=== PATIENT | male | born 1960 | race Caucasian/White ===

== ENCOUNTER 2018-05-30 08:29 | Inpatient (IN) | payer OTHER ==
[~2018-05-30 08:29] MED LIST: ACETAMINOPHEN 500 MG TAB PO ONE; TRANEXAMIC ACID 1,000 MG in NS 100 ML IV ONE; ceFAZolin 2 GM/DEXTROSE 100 ML IV ONE
[2018-05-30] MEDS ORDERED: LIDOCAINE 1% 2 ML INJ ID PRN (08:41)
[2018-05-30] MEDS ORDERED: LR 1,000 ML IV ONE (08:41)
[2018-05-30] MEDS ORDERED: ACETAMINOPHEN 500 MG TAB ONE (08:45)
[2018-05-30] MEDS ORDERED: CEFAZOLIN 2 GM/DEXTROSE/100 ML BAG IV ONE (08:45)
[2018-05-30] MEDS ORDERED: BUPIVACAINE/EPI 0.5% 30 ML SDV ONE (09:12)
[2018-05-30] MEDS ORDERED: BACITRACIN 50,000 UNITS/10 ML SYR IRR ONE (09:13)
[2018-05-30] MEDS ORDERED: SURGIFLO MATRIX KIT WITH THROMBIN 8 ML TP ONE (09:13)
--- NOTE | 2018-05-30 09:22 | PDHPUP ---
History & Physical Update H&P update statement: This history and physical update is based on an assessment of the patient which was completed after admission or registration (within 24 hours), but prior to the surgery/procedure. H&P update: H&P reviewed & patient examined (yes), no change in patient's condition since H&P completed H&P changes: Laterality discussed with patient. Will perform L2/3, L3/4 XLIF only from the left side today.
[2018-05-30] MEDS ORDERED: MIDAZOLAM 2 MG/2 ML VIAL IVP ONE ×2 (09:32→09:41)
--- NOTE | 2018-05-30 09:32 | PDANEPAE ---
ANE History of Present Illness here for xlif ANE Past Medical History - Cardiovascular History Hx Hypertension: Yes Hx Arrhythmias: No Hx Chest Pain: No Hx Coronary Artery / Peripheral Vascular Disease: No Hx CHF / Valvular Disease: No Hx Palpitations: No - Pulmonary History Hx COPD: No Hx Asthma/Reactive Airway Disease: No Hx Recent Upper Respiratory Infection: No Hx Oxygen in Use at Home: No Hx Sleep Apnea: No Sleep Apnea Screening Result - Last Documented: Negative - Neurologic History Hx Cerebrovascular Accident: No Hx Seizures: No Hx Dementia: No - Endocrine History Hx Diabetes: No - Renal History Hx Renal Disorders: No - Liver History Hx Hepatic Disorders: No - Neurological & Psychiatric Hx Hx Neurological and Psychiatric Disorders: No - Cancer History Hx Cancer: No - Congenital Disorder History Hx Congenital Disorders: No - GI History Hx Gastrointestinal Disorders: No - Other Health History Other Health History: NEG - Chronic Pain History Chronic Pain: Yes (BACK PAIN CHRONIC , KNEE,HIP, NECK, HANDS) - Surgical History Prior Surgeries: KNEE SCOPE R X2. R SHOULDER SCOPE X2. L SHOULDER SCOPE. SPINAL SURGERY X3 LUMBAR. BUNIONECTOMY OJ. COLONOSCOPIES. TENNIS ELBOW ANE Review of Systems Review of systems is: negative Review of Systems: - Exercise capacity Exercise capacity: >=4 METS METS (RN): 4 METS ANE Patient History - Allergies Allergies/Adverse Reactions: No Known Allergies Allergy (Verified 05/30/18 09:22) - Home Medications Home medications: home medication list seen and reviewed Home Medications: Acetaminophen [Tylenol ES 500 mg (*)] 1,000 mg PO TID 05/24/18 [Last Taken 05/29 21:00] Atorvastatin Calcium [Lipitor 20 mg (*)] 20 mg PO DAILY 05/24/18 [Last Taken ] Gabapentin [Neurontin 300 MG (*)] 300 mg PO TID 05/24/18 [Last Taken 05/29/18] Herbals/Supplements -Info Only 1 each PO DAILY 05/24/18 [Last Taken Unknown] Lisinopril [Zestril 20 mg (*)] 20 mg PO DAILY 05/24/18 [Last Taken 05/29/18] amLODIPine BESYLATE [Norvasc 5 mg (*)] 5 mg PO DAILY 05/24/18 [Last Taken ] Multivitamins [Multivitamin (*)] 1 each PO DAILY 05/30/18 [Last Taken 05/23/18] Tadalafil [Cialis] 20 gm PO AD PRN 05/30/18 [Last Taken 05/27/18] - NPO status NPO Status: no food or drink >8 hours NPO Since - Liquids (Date): 05/23/18 NPO Since - Liquids (Time): 06:30 NPO Since - Solids (Date): 05/29/18 NPO Since - Solids (Time): 22:00 - Smoking Hx Smoking Status: Former smoker - Family Anes Hx Family Hx Anesthesia Complications: NEG ANE Labs/Vital Signs - Vital Signs Vital Signs: reviewed preoperatively; see RN documention for details Blood Pressure: 131/83 Heart Rate: 79 Respiratory Rate: 20 O2 Sat (%): 94 Height: 172.72 cm Weight: 92.986 kg ANE Physical Exam - Airway Neck exam: FROM Mallampati Score: Class 1 - Pulmonary Pulmonary: no respiratory distress - Cardiovascular Cardiovascular: regular rate and rhythym - ASA Status ASA Status: II ANE Anesthesia Plan Anesthesia Plan: general endotracheal anesthesia
[2018-05-30] MEDS ORDERED: fentaNYL 100 MCG/2 ML INJ ONE ×3 (09:45→12:43)
[2018-05-30] MEDS ORDERED: PROPOFOL/EMULSION 500 MG/50 ML BOTTLE IV ONE (09:47)
[2018-05-30] MEDS ORDERED: *INTRAOP 1000MG*TRANEX ACID/NS 100 ML IV ONE (10:00)
[2018-05-30] MEDS ORDERED: ALBUTEROL 3 ML DEYVIAL IH PRN (10:37)
[2018-05-30] MEDS ORDERED: ONDANSETRON 4 MG/2 ML VIAL IVP PRN ×2 (10:37→13:12)
[2018-05-30] MEDS ORDERED: NALOXONE HCL 0.4 MG/ML INJ IVP PRN (10:37)
[2018-05-30] MEDS ORDERED: DEXAMETHASONE 4 MG/ML VIAL IVP PRN (10:37)
[2018-05-30] MEDS ORDERED: LR 500 ML IV PRN (10:37)
[2018-05-30] MEDS ORDERED: PROPOFOL 200 MG/20 ML VIAL ONE (11:08)
[2018-05-30] MEDS: fentaNYL 100 MCG/2 ML INJ IVP PRN ×2 (12:38→12:59)
--- NOTE | 2018-05-30 12:41 | POSTOPPROG ---
Post Op Note Date of Operation: 05/30/18 Surgeon: Jonathon Cuevas Veterinary Dentist: zana narayan PA-C Anesthesiologist: dr. Davis Anesthesia: GET(General Endotracheal) Pre-op Diagnosis: lumbar spinal stenosis Post-op Diagnosis: same Indication: pain Procedure: XLIF L2/L3 and L3/L4 Inf/Abcess present in the surg proc area at time of surgery?: No EBL: 50-100
[2018-05-30] MEDS ORDERED: HYDROmorphONE/DILAUDID 1 MG/ML INJ ONE ×2 (12:51→15:20)
[2018-05-30] MEDS: HYDROmorphONE/DILAUDID 1 MG/ML INJ IVP PRN ×7 (12:53→23:29)
[2018-05-30] MEDS ORDERED: LACTULOSE 20 GM/30 ML UDCUP PO PRN (13:12)
[2018-05-30] MEDS ORDERED: HYDROmorphONE/DILAUDID 1 MG/ML INJ IVP PRN (13:12)
[2018-05-30] MEDS ORDERED: MAGNESIUM HYDROXIDE 30 ML UDCUP PO PRN (13:12)
[2018-05-30] MEDS ORDERED: ONDANSETRON DISINTEGRATING 4 MG TAB PO PRN (13:12)
[2018-05-30] MEDS ORDERED: POLYETHYLENE GLYCOL 3350 17 GM PKT PO PRN (13:12)
[2018-05-30] MEDS ORDERED: oxyCODONE IR 5 MG TAB PO PRN (13:12)
[2018-05-30] MEDS ORDERED: diphenhydrAMINE 25 MG CAP PO PRN (13:12)
[2018-05-30] MEDS ORDERED: BISACODYL 10 MG SUPP PR PRN (13:12)
[2018-05-30] MEDS ORDERED: oxyCODONE IR 5 MG TAB ONE ×2 (13:41→14:23)
[2018-05-30] MEDS: oxyCODONE IR 5 MG TAB PO PRN ×3 (14:24→21:17)
[2018-05-30] MEDS: ACETAMINOPHEN 500 MG TAB PO SCH ×2 (16:17→21:16)
--- NOTE | 2018-05-30 16:20 | SUROPNOTE ---
[facility] Operative Report - Surgery Date: 05/30/18 Pre-operative Diagnoses: Degenerative disc disease and spondylosis s/p L4-S1 fusion Sagittal plane imbalance Right leg radiculopathy Lumbar spinal stenosis Post-operative Diagnosis: Same Procedures: Left-sided L2/3, L3/4 Minimally invasive extreme lateral interbody fusion ( XLIF) Left L2/3, L3/4 Anterior column plate and screw fixation Structural use of allograft Use of intra-operative fluoroscopy Use of intra-operative neuromonitoring, including EMG, MEP and SSEP modalities Surgeon: Jonathon Cuevas MD Assist: Sharonda Willis PA-C Anesthesia: General endotracheal anesthesia Findings: As expected Estimated Blood Loss: 20mL Drains: None Specimens: None Complications: None Condition: Transferred to PACU in stable condition Implants: NuVasive XLIF Cage: L2/3 [id number], L3/4 [id number] Anterior Column Plate: Modulus incorporated plate x 2 Anterior Screws: 55mm x 2 Allograft: 9mL allograft used structurally in the disc space and interbody cage Indications: This patient was seen in my office and diagnosed with degenerative spinal stenosis and sagittal imbalance from a prior L4-S1 fusion. I have explained all options of treatment for the patient, and the patient has elected to proceed with operative management. I have explained all risks, benefits, and alternatives of the proposed procedure. The risks that we have discussed include , blindness, nerve damage, infection, dural tear, failure of surgery to alleviate pre-operative symptoms, nonunion, and possible need for further operation. I explained separately the risks of allograft, including infection and disease transfer. I specifically discussed the additional risks of XLIF, including but not limited to vascular damage, femoral nerve radiculopathy, or weakness. In addition to the aforementioned procedure, I discussed with the patient that other procedures may be indicated during the course of surgery that would be considered in the patients best interest. The patient expressed understanding of this and agreed to move forward with operative management. Based on the position of the great vessels, I had a discussion with the patient that we would take a left-sided approach. He understood that this may mean more left thigh pain and weakness. Pre-operative: The proposed incision sites were marked in the pre-operative holding area by me. The patient was then taken to the operating room in stable condition. Following smooth induction of general anesthesia, the patient was positioned in a lateral decubitus position on a flat OR table with all down surfaces well- padded. The patient was then prepped and draped in the usual sterile fashion. Pre-operative antibiotics were administered within one hour of the incision. A surgical timeout was performed, and all parties involved in the procedure were in agreement on the correct patient, location, and procedure to be performed. Level localization and spinal pause: After the table was broken to allow for appropriate access to the disk space, x- rays were taken to make sure that the operative disc space was properly marked out. Both the L2/3 and L3/4 disc spaces were adequately visualized. Once the disk space was marked out from a lateral approach, a local anesthetic with epinephrine was injected into the area and approximately a 5cm incision was then made over the side overlying the disk directly lateral to it. Subdermal fat was then explored and moved aside. The external and internal oblique muscles were then dissected bluntly using finger and Metzenbaum scissors. The retroperitoneal space was then entered using manual palpation. The transverse process and the disk space of the operative level was palpated. A wire was then placed into the operative disc space and confirmed on both AP and lateral radiographs. Serial dilators were then placed in position here to allow for an XLIF retractor. The XLIF retractor was then placed over the operative disk space. This was again confirmed by AP and lateral radiographs and then a nerve detection system was used to ensure that the lumbar plexus was not violated. Placement of XLIF interbody cage: The L3/4 space was addressed first. A posterior amilcar was then placed into the posterior third of the vertebral body and retracted forward or anteriorly. An ALL protector was then placed anteriorly over the front of the anterior vertebral bodies. The disk space was then incised and the annulus fibrosis was removed. Serial disk preparation tools including a Nelson curette, box cutters, # 5 Kerrison and pituitary rongeur was used to prep the disk space. This was also flushed several times to ensure that the disk space was empty of any remaining debris. At this time, a trial was then placed and the appropriately sized cage was selected. The cage was then packed with 5 mL of allograft bone and this was gently malleted in place and again confirmed by both AP and lateral radiographs. The rack production worker was then removed. Attention was then turned towards the plate placement. At this time, an anterior column plate was then placed laterally over the cage itself. Screw holes were then drilled into both the cephalad and caudal vertebrae levels. Appropriately-sized screws were then placed into both vertebrae with just enough purchase for a bicortical bite within the vertebral body. Again, radiographs confirmed both placement of the graft and the screws. The spondylolisthesis and pars insufficiency fractures were noted to be reduced. At this time, all monitoring was noted to be stable. Based on presurgical templating, a 12mm x 22mm x 15deg cage was placed, and an associated 55mm screw was used through the Modulus plate. The process was repeated at L2/3. The retractor was removed and replaced, and a 8mm x 22mm x 10deg cage was placed with a 55mm screw and Modulus plate were used. Closure of lateral incision: Attention was then turned towards closure. Several #1 Vicryl sutures were used to reapproximate the fascia overlying the oblique muscles. A 2-0 Monocryl sutures were then used to repair the subcutaneous tissues and a 4-0 Monocryl was used to repair the skin. Glue was then used over the top of this and this surgical site was then sealed completely. Neuromonitoring: SSEP, MEP, and EMG were used throughout the case from incision until the beginning of closure. There were no significant changes throughout the case, and SSEP signals were at their pre-surgical baseline levels before surgical closure was initiated. land surveyor assistant: A surgical scrub tech was used throughout the case, and deemed necessary for safe neural retraction, hemostasis, and suction. Recovery: The patient was extubated uneventfully in the operating room. The patient was taken to the recovery room in stable condition. Sequential compression devices for VTE prophylaxis were applied to the patients lower extremities, and were ordered to be used while the patient was non-ambulatory. Chemical VTE prophylaxis was considered to be contraindicated for this patient because of the risk of bleeding near the epidural space. Jonathon Cuevas MD
--- NOTE | 2018-05-30 16:32 | SOAPPROG ---
SOAP Progress Note Assessment/Plan: Pt seen and evaluated at bedside. No unusual complaints. Had pain before, now controlled on an oral regimen. Neuro intact, mild anterior thigh pain noted. A/P transfer to floor care PO pain Rx Will meet with patient tomorrow. If any issues or questions arise, please contact me (not call service) directly at [phone] [place] Objective: Vital Signs Temp Pulse Resp BP Pulse Ox 36.3 C 77 16 126/72 H 93 05/30/18 16:10 05/30/18 16:10 05/30/18 16:10 05/30/18 16:10 05/30/18 16:10 05/29/18 05/30/18 05/31/18 05:59 05:59 05:59 Intake Total 850 Output Total 20 Balance 830 ICD10 Worksheet Patient Problems: Problems Problem Status Onset Spinal stenosis Acute Spinal stenosis Acute - ICD10 Problem Qualifiers (1) Spinal stenosis (2) Spinal stenosis
[2018-05-30] MEDS: ceFAZolin 2 GM/DEXTROSE 100 ML IV SCH (18:38)
[2018-05-30] MEDS: SENNOSIDES/DOCUSATE SODIUM TAB PO SCH (21:17)
[2018-05-30] MEDS: FAMOTIDINE 20 MG TAB PO SCH (21:17)
[2018-05-31] MEDS: ceFAZolin 2 GM/DEXTROSE 100 ML IV SCH (02:03)
[2018-05-31] MEDS: oxyCODONE IR 5 MG TAB PO PRN ×6 (02:04→23:58)
[2018-05-31 05:34] LABS: PLATELET COUNT 308 10^3/uL (150-400)
[2018-05-31] MEDS: ACETAMINOPHEN 500 MG TAB PO SCH ×3 (05:57→21:47)
[2018-05-31] MEDS: SENNOSIDES/DOCUSATE SODIUM TAB PO SCH ×2 (08:12→21:46)
[2018-05-31] MEDS: FAMOTIDINE 20 MG TAB PO SCH ×2 (08:12→21:47)
[2018-05-31] MEDS: HYDROmorphONE/DILAUDID 1 MG/ML INJ IVP PRN ×2 (08:59→11:37)
[2018-05-31] MEDS ORDERED: ATORVASTATIN CALCIUM 20 MG TAB PO SCH (09:00)
[2018-05-31] MEDS ORDERED: amLODIPine BESYLATE 5 MG TAB PO SCH (09:00)
[2018-05-31] MEDS ORDERED: LISINOPRIL 20 MG TAB PO SCH (09:15)
[2018-05-31] MEDS: LISINOPRIL 20 MG TAB PO SCH (10:02)
[2018-05-31] MEDS: ATORVASTATIN CALCIUM 20 MG TAB PO SCH (10:02)
[2018-05-31] MEDS: amLODIPine BESYLATE 5 MG TAB PO SCH (10:03)
--- NOTE | 2018-05-31 10:51 | PDMN ---
Medical Necessity Medical necessity: [facility] IP only surgery; cpt 81536 Lumbar Fusion (L2/3, L3/4 XLIF)
--- NOTE | 2018-05-31 11:07 | ASMTCMCOM ---
CM Note CM Note Notes: Met with patient re: d/c planning and discussed case with primary RN. Patient is scheduled for anther surgery tomorrow. At this time, patient feels he will be okay discharging home independently with family but would like CM to follow-up post surgery on to confirm. Will continue to follow. Plan: TBD - will follow-up post surgery on Date Signed: 05/31/2018 11:07 AM Electronically Signed By:Suha Serrato RN
--- NOTE | 2018-05-31 12:05 | GPROG ---
[f rep st] PROGRESS NOTE SUBJECTIVE: I saw the patient as well as his today at the bedside. Overall, he is in good spir its and doing quite well. He reports that his right lower extremity pain that was there before the o peration is improved. He does have a little bit of left anterior thigh pain, but it is tolerable. P ain is well controlled on an oral regimen with occasional breakthroughs of IV pain medicine, but larg mala localized to the back. IMPRESSION: Postoperative day #1 status post 2-level extreme lateral interbody fusion. ASSESSMENT AND PLAN: Moving forward, we will still plan the posterior revision lumbar decompression and fusion with instrumentation from L2 to L5 or S1 tomorrow. The patient expressed understanding. We will make him n.p.o. after midnight. We also fitted him for some portable Venodyne devices, which will help with deep venous thrombosis prophylaxis mechanically. /[id number]/MODL
[2018-05-31] MEDS: GABAPENTIN 300 MG CAP PO SCH ×2 (15:46→21:47)
[2018-06-01] MEDS: ACETAMINOPHEN 500 MG TAB PO SCH ×3 (06:34→22:22)
[2018-06-01] MEDS: oxyCODONE IR 5 MG TAB PO PRN ×3 (07:29→20:00)
[2018-06-01] MEDS: LISINOPRIL 20 MG TAB PO SCH (09:11)
[2018-06-01] MEDS: ATORVASTATIN CALCIUM 20 MG TAB PO SCH (09:15)
[2018-06-01] MEDS: FAMOTIDINE 20 MG TAB PO SCH ×2 (09:15→20:00)
[2018-06-01] MEDS: GABAPENTIN 300 MG CAP PO SCH ×3 (09:15→22:22)
[2018-06-01] MEDS: SENNOSIDES/DOCUSATE SODIUM TAB PO SCH ×2 (09:16→20:00)
[2018-06-01] MEDS: amLODIPine BESYLATE 5 MG TAB PO SCH (09:16)
[2018-06-01] MEDS ORDERED: TRANEXAMIC ACID 1,000 MG/10 ML VIAL ONE (12:42)
[2018-06-01] MEDS ORDERED: BUPIVACAINE/EPI 0.5% 30 ML SDV ONE (12:42)
[2018-06-01] MEDS ORDERED: BACITRACIN 50,000 UNITS/10 ML SYR IRR ONE (12:43)
[2018-06-01] MEDS ORDERED: SURGIFLO MATRIX KIT WITH THROMBIN 8 ML TP ONE (12:43)
[2018-06-01] MEDS ORDERED: VANCOMYCIN 1 GM VIAL ONE (12:44)
--- NOTE | 2018-06-01 13:00 | PDANEPAE ---
ANE Past Medical History - Cardiovascular History Hx Hypertension: Yes Hx Arrhythmias: No Hx Chest Pain: No Hx Coronary Artery / Peripheral Vascular Disease: No Hx CHF / Valvular Disease: No Hx Palpitations: No - Pulmonary History Hx COPD: No Hx Asthma/Reactive Airway Disease: No Hx Recent Upper Respiratory Infection: No Hx Oxygen in Use at Home: No Hx Sleep Apnea: No Sleep Apnea Screening Result - Last Documented: Negative - Neurologic History Hx Cerebrovascular Accident: No Hx Seizures: No Hx Dementia: No - Endocrine History Hx Diabetes: No - Renal History Hx Renal Disorders: No - Liver History Hx Hepatic Disorders: No - Neurological & Psychiatric Hx Hx Neurological and Psychiatric Disorders: No - Cancer History Hx Cancer: No - Congenital Disorder History Hx Congenital Disorders: No - GI History Hx Gastrointestinal Disorders: No - Other Health History Other Health History: NEG - Chronic Pain History Chronic Pain: Yes (BACK PAIN CHRONIC , KNEE,HIP, NECK, HANDS) - Surgical History Prior Surgeries: KNEE SCOPE R X2. R SHOULDER SCOPE X2. L SHOULDER SCOPE. SPINAL SURGERY X3 LUMBAR. BUNIONECTOMY OJ. COLONOSCOPIES. TENNIS ELBOW ANE Review of Systems Review of Systems: - Exercise capacity METS (RN): 4 METS ANE Patient History - Allergies Allergies/Adverse Reactions: No Known Allergies Allergy (Verified 05/30/18 09:22) - Home Medications Home Medications: Acetaminophen [Tylenol ES 500 mg (*)] 1,000 mg PO TID 05/24/18 [Last Taken 05/29 21:00] Atorvastatin Calcium [Lipitor 20 mg (*)] 20 mg PO DAILY 05/24/18 [Last Taken ] Gabapentin [Neurontin 300 MG (*)] 300 mg PO TID 05/24/18 [Last Taken 05/29/18] Herbals/Supplements -Info Only 1 each PO DAILY 05/24/18 [Last Taken Unknown] Lisinopril [Zestril 20 mg (*)] 20 mg PO DAILY 05/24/18 [Last Taken 05/29/18] amLODIPine BESYLATE [Norvasc 5 mg (*)] 5 mg PO DAILY 05/24/18 [Last Taken ] Multivitamins [Multivitamin (*)] 1 each PO DAILY 05/30/18 [Last Taken 05/23/18] Tadalafil [Cialis] 20 gm PO AD PRN 05/30/18 [Last Taken 05/27/18] - NPO status NPO Since - Liquids (Date): 06/01/18 NPO Since - Liquids (Time): 00:00 NPO Since - Solids (Date): 06/01/18 NPO Since - Solids (Time): 00:00 - Smoking Hx Smoking Status: Former smoker - Family Anes Hx Family Hx Anesthesia Complications: NEG ANE Labs/Vital Signs - Labs Result Diagrams: 05/31/18 04:42 05/31/18 04:42 - Vital Signs Blood Pressure: 135/76 Heart Rate: 88 Respiratory Rate: 18 O2 Sat (%): 94 Height: 172.72 cm Weight: 92.98 kg ANE Physical Exam - Airway Mallampati Score: Class 2 - ASA Status ASA Status: II ANE Anesthesia Plan Anesthesia Plan: general endotracheal anesthesia
[2018-06-01] MEDS ORDERED: MIDAZOLAM 2 MG/2 ML VIAL ONE (13:08)
[2018-06-01] MEDS ORDERED: PROPOFOL 200 MG/20 ML VIAL ONE ×2 (13:09→13:56)
[2018-06-01] MEDS ORDERED: fentaNYL 100 MCG/2 ML INJ ONE ×5 (13:09→19:00)
[2018-06-01] MEDS ORDERED: PROPOFOL/EMULSION 500 MG/50 ML BOTTLE IV ONE ×4 (13:10→16:34)
[2018-06-01] MEDS ORDERED: ROCURONIUM 50 MG/5 ML VIAL ONE (13:11)
[2018-06-01] MEDS ORDERED: METOCLOPRAMIDE 10 MG/2 ML VIAL ONE (13:12)
[2018-06-01] MEDS ORDERED: ONDANSETRON 4 MG/2 ML VIAL ONE (13:12)
--- NOTE | 2018-06-01 13:22 | PDHPUP ---
History & Physical Update H&P update statement: This history and physical update is based on an assessment of the patient which was completed after admission or registration (within 24 hours), but prior to the surgery/procedure. H&P update: H&P reviewed & patient examined (Patient ready for L2-S1 revision fusion)
[2018-06-01] MEDS ORDERED: ceFAZolin 2 GM/DEXTROSE 100 ML IV ONE (13:30)
[2018-06-01] MEDS ORDERED: ceFAZolin 1 GM VIAL ONE ×2 (13:53)
[2018-06-01] MEDS ORDERED: *PREOP 1000MG*TRANEX ACID/NS 100 ML IV ONE (14:00)
[2018-06-01] MEDS ORDERED: *INTRAOP 1000MG*TRANEX ACID/NS 100 ML IV ONE (17:00)
[2018-06-01] MEDS ORDERED: PROMETHAZINE HCL 25 MG/ML INJ IVP PRN (18:10)
[2018-06-01] MEDS ORDERED: LR 500 ML IV PRN (18:10)
[2018-06-01] MEDS ORDERED: NALOXONE HCL 0.4 MG/ML INJ IVP PRN ×2 (18:10→21:00)
[2018-06-01] MEDS ORDERED: DIAZEPAM 5 MG/ML 1 ML SYR IVP PRN (18:10)
[2018-06-01] MEDS ORDERED: ONDANSETRON 4 MG/2 ML VIAL IVP PRN (18:10)
[2018-06-01] MEDS ORDERED: DEXAMETHASONE 4 MG/ML VIAL IVP PRN (18:10)
--- NOTE | 2018-06-01 18:12 | POSTANESTH ---
Post Anesthetic Evaluation Cardiovascular Status: Normal, Stable Respiratory Status: Normal, Stable Level of Consciousness/Mental Status: Can Participate in Eval Pain Control: Adequate, Prn Tx Ordered Nausea/Vomiting Control: Adequate, Prn Tx Ordered Complications Possibly Related to Anesthesia: None Noted
[2018-06-01] MEDS ORDERED: DIAZEPAM 5 MG/ML 1 ML SYR ONE (18:14)
[2018-06-01] MEDS: fentaNYL 100 MCG/2 ML INJ IVP PRN ×4 (18:15→19:15)
[2018-06-01] MEDS ORDERED: DEXAMETHASONE 4 MG/ML VIAL ONE (18:25)
[2018-06-01] MEDS ORDERED: HYDROmorphONE/DILAUDID 1 MG/ML INJ ONE (18:37)
[2018-06-01] MEDS: HYDROmorphONE/DILAUDID 1 MG/ML INJ IVP PRN ×5 (18:40→19:59)
--- NOTE | 2018-06-01 22:13 | SUROPNOTE ---
[facility] Operative Report - Surgery Date: 06/01/18 Pre-operative Diagnoses: Lumbar degenerative disc disease and spondylosis Lumbar spinal stenosis s/p L2/3, L3/4 XLIF on 05/30 s/p remote L4-S1 PLDF with sagittal imbalance Post-operative Diagnosis: Same Procedures: L2-S1 Posterior Lumbar Revision Decompression (L2-4) and Fusion with Instrumentation (L2-S1) Structural use of morselized local autograft bone Structural use of allograft Use of intra-operative fluoroscopy Use of intra-operative neuromonitoring, including EMG, MEP, and SSEP modalities Use of a surgical microscope Surgeons: Jonathon Cuevas MD; Fabiola Morales MD Anesthesia: General endotracheal anesthesia Findings: As expected Estimated Blood Loss: 400mL Drains: Hemovac sewn to skin Specimens: None Complications: None Condition: Transferred to PACU in stable condition. Implants: [employer] Screws: 6.5x45mm (bilateral L2), 6.5x50mm (bilateral L3), Rt L5 6.5x55mm, Rt S1 6.5x55mm, Lt S1 6.5x50mm Rods: 100mm x 2 Allograft: 5mL allograft used structurally Autograft: local bone from decompression used structurally Indications: This patient was seen in my office and diagnosed with degenerative spinal stenosis. I have explained all options of treatment for the patient, and the patient has elected to proceed with operative management. I have explained all risks, benefits, and alternatives of the proposed procedure. The risks that we have discussed include , blindness, nerve damage, infection, dural tear, failure of surgery to alleviate pre-operative symptoms, and possible need for further operation. I explained separately the risks of allograft, including infection and disease transfer. In addition to the aforementioned procedure, I discussed with the patient that other procedures may be indicated during the course of surgery that would be considered in the patients best interest. The patient expressed understanding of this and agreed to move forward with operative management. Pre-operative: The proposed incision site was marked in the pre-operative holding area by me. The patient was then taken to the operating room in stable condition. Following smooth induction of general anesthesia, the patient was positioned prone on a Piotr table with all down surfaces well-padded. The patient was then prepped and draped in the usual sterile fashion. Pre-operative antibiotics were administered within one hour of the incision. A surgical timeout was performed, and all parties involved in the procedure were in agreement on the correct patient, location, and procedure to be performed. Approach and dissection: A midline incision was then made, using the prior incision and extending cephalad.. Electrocautery was used to dissect the subdermal fat layer down to fascia and to coagulate bleeding vessels. The fascia was spared for later closure. Of note, the patients BMI over 31 made the dissection more time-consuming and technically difficult. Spinal pause: Prior instrumentation was readily identified from L4 to S1. A secondary spinal pause was then performed, and the level was confirmed with all parties participating in the operation. Navigation: At this point, the patient was covered, and an intra-operative CT scan was performed. Computer-aided stereotactic navigation would be used throughout all of the instrumentation portion of the case. Removal of instrumentation and inspection of fusion mass: All prior instrumentation was removed. The fusion mass from L4 to S1 was deemed solid. Of note, the left L5 screw was noted to be lateral and would not be replaced, the left L4 screw had a starting point that was too medial to link up with the rods, and the left S1 screw was considered long, and 5mm would be taken off for the final screw placement. Pedicle screw placement: Using a freehand technique with navigated assistance, a standard entry point was selected based on bony landmarks. A gliding pilot instructor hole was created with a high speed ranjan. The pedicle tract was then cannulated using a curved Lenke probe. A ball-tipped feeler was then passed through the cannulated tract to ensure that there was no breach on all sides: superior, inferior, medial, lateral, and ventral. A tap was then used up to a size that was 1mm below the final screw size based on pre-operative templating. A ball-tipped feeler was used again in a similar fashion to ensure a safe trajectory without breach. The tract length was then measured and recorded for future pedicle screw selection and placement. The pedicle tract flory then injected with a small amount of microfibrillar collagen agent to ensure hemostasis. This sequence was performed for all levels that would be included in the fusion. An appropriately-sized screw was placed at each level and confirmed fluoroscopically. All screws were then stimulated. Each screw was stimulated and potentials were all above 20 milliAmps. This process was repeated in a similar fashion on the contralateral side. CT imaging: At this point, a second CT scan was performed to ensure that the proper placement of all screws. Decompression: All paraspinal muscles were dissected sub-periostally from the spinous processes and laminae. The dissection was then carried out to include the extent of decompression that was determined before surgery, with care being taken to preserve facet capsules that would not be included in the final fusion. The lateral pars was identified for all levels to be included in the proposed decompression. Using a combination of rongeur, ranjan, and Kerrison rongeurs, the spinous processes and laminae were removed at all levels to the subarticular lateral recess. Care was taken to leave a minimum of 8mm of bone from the lateral border of the pars at each decompressed level. The ligamentum flavum was resected at all levels. Using a Kerrison rongeur angled back, additional ligamentum flavum was removed from under the caudal aspect of the cephalad-most level, and from under the cephalad aspect of the caudal-most level. Additional care was taken to adequately decompress the lateral recess at all levels. At this time, a ball probe was used to probe all foraminae at the affected levels. Where necessary, a small Kerrison rongeur was used to decompress remaining bone and soft tissue so that all nerve roots would traverse freely through the foraminae. In total, the entire laminae of L4, L3, and the caudal half of L2 were removed. As this was a revision dissection and decompression at the L4 level, additional time and precaution were taken to safely dissect here. Bone graft: All bony surfaces were decorticated using a high speed arnjan, including all facets to be fused. All local autograft bone was cleaned of soft tissue and morselized. All remaining allograft and autograft bone was placed in the facets being fused and lateral to the instrumentation in the posterolateral gutters. Chalino and set screw placement: An appropriately-sized chalino (100mm bilaterally) was then placed into the pedicle screw heads, with ample chalino extending from either end. Set screws were then placed into all pedicle screws over the rods, and tensioned using a torque- limited screwdriver. Compression was used from L3/4 and L2/3 in a serial fashion to correct the patients loss of lordosis following the prior fusion. Closure: The surgical field was then copiously irrigated with sterile saline. Vancomycin powder was then applied to the surgical field. A small drain was placed deep to the fascia and brought out of the skin superior and laterally. The drain was then sewn to skin. #1 vicryl suture were used to repair the fascia in an interrupted fashion. Then 2-0 interrupted sutures were used to repair the dermal layer, and a separate 3-0 monofilament suture was used to repair the subcutaneous layer in a running fashion. All sutures used were absorbable. Topical adhesive was then applied to the skin and allowed to dry. A sterile island dressing was applied over the surgical incision. A surgical count was performed before initiation of closure and following the procedure, and all were correct. I was present for all critical portions of the procedure. Surgical microscope use: A surgical microscope was utilized throughout the decompressive portion of this case. This was deemed necessary for safe and accurate surgical decompression of affected nerve roots. Neuromonitoring: SSEP, MEP, and EMG were used throughout the case from incision until the beginning of closure. There were no significant changes throughout the case, and SSEP signals were at their pre-surgical baseline levels before surgical closure was initiated. Co-surgeon: A co-surgeon (Dr. Fabiola Morales) was used throughout the case, and deemed necessary for safe neural retraction, hemostasis, and suction. The utility of a second surgeon decreased the overall operative time and facilitated a safer dissection and concomitant bilateral dissection. Recovery: The patient was extubated uneventfully in the operating room. The patient was taken to the recovery room in stable condition. Sequential compression devices for VTE prophylaxis were applied to the patients lower extremities, and were ordered to be used while the patient was non-ambulatory. Chemical VTE prophylaxis was considered to be contraindicated for this patient because of the risk of bleeding near the epidural space. 22 modifier: Of note, due to the antiquity of the instrumentation being removed which was substantially more difficult than modern instrumentation, the nature of the revision decompression necessitating slow and careful dissection, and the BMI over 31 adding the length and depth of exposure, a substantial amount of additional time was added to the total operative time for this case. An addition 45 minutes or more of total operative time was added. A 22 modifier will be added to the case. Jonathon Cuevas MD
[2018-06-01] MEDS: HYDROmorphONE/DILAUDID 6 MG/30 ML PCA IV PRN (22:22)
[2018-06-02] MEDS: oxyCODONE IR 5 MG TAB PO PRN (00:38)
[2018-06-02] MEDS: ACETAMINOPHEN 500 MG TAB PO SCH ×3 (05:31→22:51)
[2018-06-02] MEDS: HYDROmorphONE/DILAUDID 6 MG/30 ML PCA IV PRN ×2 (06:35→17:10)
--- NOTE | 2018-06-02 08:34 | GPROG ---
[f rep st] PROGRESS NOTE DAILY PROGRESS NOTE I saw and evaluated the patient this morning. Overall, I spoke with his nurse last night. 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 He has had some problems with pain in the past. Has a histo ry of alcohol use, as well as other narcotics, and probably has been habituated to this point. PHYSICAL EXAM: The drain is in place, with a normal and expected amount of serosanguineous drainage. The dressing itself is clean, dry, and, intact. He is neurologically intact. He does report some right thigh pain. He is neurologically intact. He has no sensory, motor, or vascular deficits noted . IMPRESSION: Postoperative day 1, status post revision L2 to S1 posterior lumbar decompression and fu cody with instrumentation, with interbody fusion from L2 to L4. The patient is doing well. I suspec t he will feel a lot better once he gets up and walks around when compared to before surgery. He has some residual right thigh pain which may be due to the lateral lumbar interbody fusion procedure. W ith regard to his pain control, we have switched him from oxycodone to Dilaudid 2 to 4 mg every 3 nadia rs, and I have discussed this with his overnight as well as oncoming nurse. I suspect he is doing qu ite well. We will wean him off the SOLDERER ASSEMBLY REPAIR hopefully by the end of the day. We will get him started wit h physical therapy, and hopefully we will aim for a discharge of tomorrow. All questions answered fr om patient. The nurse also has my cell phone if he has any further questions or concerns, [phone]. /[id number]/MODL
[2018-06-02] MEDS: ATORVASTATIN CALCIUM 20 MG TAB PO SCH (08:40)
[2018-06-02] MEDS: LISINOPRIL 20 MG TAB PO SCH (08:40)
[2018-06-02] MEDS: HYDROmorphONE/DILAUDID 2 MG TAB PO PRN ×5 (08:40→21:38)
[2018-06-02] MEDS: amLODIPine BESYLATE 5 MG TAB PO SCH (08:41)
[2018-06-02] MEDS: GABAPENTIN 300 MG CAP PO SCH ×3 (08:41→21:37)
[2018-06-02] MEDS: FAMOTIDINE 20 MG TAB PO SCH ×2 (08:41→21:39)
[2018-06-02] MEDS: SENNOSIDES/DOCUSATE SODIUM TAB PO SCH ×2 (08:41→21:38)
--- NOTE | 2018-06-02 12:29 | ASMTCMCOM ---
CM Note CM Note Notes: PT/OT rec home. Anticipate pt will d/c when medically stable. No CM d/c needs identified. CM available for changes/needs. Date Signed: 06/02/2018 12:28 PM Electronically Signed By:JUDE Lopez
[2018-06-03] MEDS: ACETAMINOPHEN 500 MG TAB PO SCH ×2 (05:48→14:11)
[2018-06-03] MEDS: HYDROmorphONE/DILAUDID 2 MG TAB PO PRN ×4 (05:48→16:41)
[2018-06-03] MEDS: FAMOTIDINE 20 MG TAB PO SCH (08:37)
[2018-06-03] MEDS: GABAPENTIN 300 MG CAP PO SCH ×2 (08:37→16:21)
[2018-06-03] MEDS: amLODIPine BESYLATE 5 MG TAB PO SCH (08:38)
[2018-06-03] MEDS: LISINOPRIL 20 MG TAB PO SCH (08:38)
[2018-06-03] MEDS: ATORVASTATIN CALCIUM 20 MG TAB PO SCH (08:39)
[2018-06-03] MEDS: SENNOSIDES/DOCUSATE SODIUM TAB PO SCH (08:40)
[2018-06-03] MEDS: oxyCODONE IR 5 MG TAB PO PRN ×4 (08:41→18:06)
[2018-06-03 13:09] VITALS: BP 125/73
[2018-06-03] MEDS ORDERED: METHYLNALTREXONE BROMIDE 12 MG/0.6 ML INJ SC ONE (14:37)
--- NOTE | 2018-06-03 14:48 | PDDCSUM ---
Discharge Summary Discharge Summary: Pt underwent undeventful Lt L2/3, L3/4 on 05/30, and a revision PLDF and JHONATAN on . There were no postop complications and the postop course was undeventful. For all instructions, please refer to pre-surgical packet given to patient. Pt discharged with Robaxin, dilaudid, and percocet. He was instructed to call me with any questions: [phone] [place]
--- NOTE | 2018-06-03 14:52 | GPROG ---
I have seen and evaluated Mr. Doyle today personally. Overall, he is going quite well. He is having some constipation. He has done a couple of laps with physical therapy and both he and his report that he is ambulating better than before the operation. PHYSICAL EXAMINATION: He does have a distended bowel; however, he is passing gas. He is neurologically intact. He does not complain of right thigh pain at this time and his left iliopsoas is somewhat weak, but to be expected. IMPRESSION: Status post L2-S1 revision fusion and decompression. ASSESSMENT AND PLAN: Seth is doing quite well from the operation. He is having a little bit of opioid induced constipation, so we will give him a dose of Relistor today, a one time dose. We will also remove his Dilaudid IV and only give it to him orally. Being discharged, he will be on just oral Dilaudid. We will discontinue his drain as the output is minimal at this time. /[id number]/MODL MTDD
[2018-06-03] MEDS ORDERED: MAGNESIUM CITRATE 300 ML BOTTLE PO ONE (15:15)
--- NOTE | 2018-06-03 15:53 | ASDISCHSUM ---
Discharge Information Plan Status:Home with No Needs Medically Cleared to Leave:06/03/2018 Discharge Date:06/03/2018 CM D/C Disposition:Home, Routine, Self-Care ADT D/C Disposition:Home, Routine, Self-Care Projected Discharge Date:06/03/2018 Transportation at D/C:Family Discharge Delay Reason: Follow-Up Date:06/03/2018 Discharge Slot: Final Diagnosis: Placement Information Patient Contact Information Contact Name:KRISTEN Relationship: Address:[address] Work Phone: City:[place] Phone: State/Zip Code:[place] [address] Email: Financial Information Financial Class:Medicare Primary Plan Desc:MEDICARE INPATIENT Primary Plan Number:[id number] Secondary Plan Desc:[employer] Secondary Plan Number:[id number] Assessment Information LACE LACE Length of stay for Answers: 4-6 days current admission Acuity / Level of Answers: Yes Care: Did the patient have an inpatient admission? Comorbidities - select Answers: Opioid dependence all that apply / Chronic pain Other Notes: HTN # of Emergency department Answers: 0 visits in the last 6 months Score: 12 Date Signed: 06/03/2018 03:52 PM Electronically Signed By:JUDE Wood [facility] Progress Note CM Note CM Note Notes: Met with patient re: d/c planning and discussed case with primary RN. Patient is scheduled for anther surgery tomorrow. At this time, patient feels he will be okay discharging home independently with family but would like CM to follow-up post surgery on to confirm. Will continue to follow. Plan: TBD - will follow-up post surgery on Date Signed: 05/31/2018 11:07 AM Electronically Signed By:Suha Serrato RN [facility] CM Progress Note CM Note CM Note Notes: PT/OT rec home. Anticipate pt will d/c when medically stable. No CM d/c needs identified. CM available for changes/needs. Date Signed: 06/02/2018 12:28 PM Electronically Signed By:JUDE Lopez Case Management Discharge Plan Note Case Management Discharge Discharge Order Complete? Answers: Yes Patient to Obtain Answers: via Family Medications Transportation Arranged Answers: Family/Friends Discharge Comments Notes: Pt is discharging home today with his and no CM needs. Date Signed: 06/03/2018 03:52 PM Electronically Signed By:JUDE Wood Intervention Information
--- NOTE | 2018-06-09 13:56 | GPROG ---
POSTANESTHESIA CARE NOTE This patient underwent L2-L3, L3-L4 XLIF with Dr. Cuevas. The patient was taken to the PACU in stabl e condition. The patient's pain and nausea were adequately controlled. There were no apparent compl ications from this anesthetic. /[id number]/MODL
== END 2018-06-03 18:13 | disposition home or self-care (01) | DRG 460 ==
LOC: F3N 08:29
PROVIDERS: ADMIT Orthopaedic Surgery Orthopaedic Surgery of the Spine; ATTEND Orthopaedic Surgery Orthopaedic Surgery of the Spine
PROC: 4A1004G Monitoring of Central Nervous Electrical Activity, Intraoperative, Open Approach (ICD-10-PCS; principal; 2018-05-30 09:45)
PROC: 0SG10AJ Fusion of 2 or more Lumbar Vertebral Joints with Interbody Fusion Device, Posterior Approach, Anterior Column, Open Approach (ICD-10-PCS; principal; 2018-05-30 09:45)
PROC: 00NY0ZZ Release Lumbar Spinal Cord, Open Approach (ICD-10-PCS; 2018-06-01 13:15)
PROC: 4A1004G Monitoring of Central Nervous Electrical Activity, Intraoperative, Open Approach (ICD-10-PCS; 2018-06-01 13:15)
PROC: 0SP30AZ Removal of Interbody Fusion Device from Lumbosacral Joint, Open Approach (ICD-10-PCS; 2018-06-01 13:15)
PROC: 8E0WXBZ Computer Assisted Procedure of Trunk Region (ICD-10-PCS; 2018-06-01 13:15)
PROC: 0SG10AJ Fusion of 2 or more Lumbar Vertebral Joints with Interbody Fusion Device, Posterior Approach, Anterior Column, Open Approach (ICD-10-PCS; 2018-06-01 13:15)
PROC: 0SG30AJ Fusion of Lumbosacral Joint with Interbody Fusion Device, Posterior Approach, Anterior Column, Open Approach (ICD-10-PCS; 2018-06-01 13:15)
PROC: 01NB0ZZ Release Lumbar Nerve, Open Approach (ICD-10-PCS; 2018-06-01 13:15)
DX: M51.16 Intervertebral disc disorders with radiculopathy, lumbar region (principal); M48.062 Spinal stenosis, lumbar region with neurogenic claudication; M16.11 Unilateral primary osteoarthritis, right hip; Z98.1 Arthrodesis status; Z68.31 Body mass index [BMI] 31.0-31.9, adult; I10 Essential (primary) hypertension
CPT/HCPCS: 97116-GP; 97161-GP; 97166-GO; C1713; C1762; G8978-GP-CJ; G8979-GP-CI; G8987-GO-CI; G8988-GO-CI; G8989-GO-CI; J0690; J1100; J1170; J2212; J2250; J2405; J2704; J2765; J3010; J3360; J3370